=== PATIENT | male | born 1995 | race Two or more races ===

== ENCOUNTER 2021-01-03 09:31 | Emergency (ER) | payer MEDICAID ==
[~2021-01-03] VITALS: Ht 177.8 cm; Wt 62.1 kg
[2021-01-03 09:45] VITALS: BP 119/87
[2021-01-03] MEDS ORDERED: LIDOcaine 1.5% w/epinephrine 1:200,000 5ml ampul IJ ONE (09:50)
[2021-01-03] MEDS ORDERED: SULF1TAB45 PO (10:24)
== END 2021-01-03 10:50 | disposition home or self-care (01) ==
LOC: ER 09:32
DX: L02.411 Cutaneous abscess of right axilla (principal); Z72.89 Other problems related to lifestyle; Z79.2 Long term (current) use of antibiotics
CPT/HCPCS: 10060; 99283